=== PATIENT | female | born 1980 | race Native Hawaiian/Other Pacific Islander ===

== ENCOUNTER 2016-05-31 21:53 | Emergency (ER) | payer OTHER ==
[~2016-05-31] VITALS: Ht 175.3 cm; Wt 63.5 kg
[2016-05-31] MEDS ORDERED: ESTRACE2 MG PO (22:07)
[2016-05-31 22:39] LABS: PLATELET COUNT 192 K/uL (152-353)
[2016-05-31 22:49] LABS: POTASSIUM 3.4 mmol/L (3.6-5.2)
[2016-06-01 02:41] VITALS: BP 95/51; TEMP 99
== END 2016-06-01 02:42 | disposition home or self-care (01) ==
LOC: ED 21:53
DX: R31.9 Hematuria, unspecified (principal); N39.0 Urinary tract infection, site not specified; N20.0 Calculus of kidney; E87.1 Hypo-osmolality and hyponatremia
CPT/HCPCS: 36415; 80053; 81000; 85027; 96361; 96365; 96375; 99284; J0744; J1885; J2405

== ENCOUNTER 2017-08-06 09:41 | Emergency (ER) | payer OTHER ==
[~2017-08-06] VITALS: Ht 175.3 cm; Wt 68.0 kg
[~2017-08-06 09:41] MED LIST: ESTRACE2 MG PO
[2017-08-06 10:17] LABS: PLATELET COUNT 240 K/uL (152-353)
[2017-08-06 11:30] VITALS: BP 118/78; TEMP 98.7
== END 2017-08-06 11:30 | disposition home or self-care (01) ==
LOC: ED 09:41
PROVIDERS: Family Medicine
DX: R07.89 Other chest pain (principal)
CPT/HCPCS: 36415; 80053; 85027; 85379; 99283

== ENCOUNTER 2018-08-24 18:51 | Emergency (ER) | payer OTHER ==
[~2018-08-24] VITALS: Ht 175.3 cm; Wt 85.3 kg
[2018-08-24 20:50] VITALS: BP 100/61; TEMP 98.3
== END 2018-08-24 20:50 | disposition home or self-care (01) ==
LOC: ED 18:51
PROC: 0HQDXZZ Repair Right Lower Arm Skin, External Approach (ICD-10-PCS; principal; 2018-08-24)
DX: S51.811A Laceration without foreign body of right forearm, initial encounter (principal); W26.8XXA Contact with other sharp object(s), not elsewhere classified, initial encounter
CPT/HCPCS: 99283; J2001

== ENCOUNTER 2019-08-12 09:04 | Emergency (ER) | payer OTHER ==
[~2019-08-12] VITALS: Ht 175.3 cm; Wt 83.9 kg
[2019-08-12 09:12] VITALS: BP 108/70; TEMP 97.9
== END 2019-08-12 10:42 | disposition home or self-care (01) ==
LOC: ED 09:04
PROC: 0HQNXZZ Repair Left Foot Skin, External Approach (ICD-10-PCS; principal; 2019-08-12)
DX: S91.312A Laceration without foreign body, left foot, initial encounter (principal); W22.8XXA Striking against or struck by other objects, initial encounter; Y92.89 Other specified places as the place of occurrence of the external cause
CPT/HCPCS: 99283

== ENCOUNTER 2020-12-04 14:05 | Emergency (ER) | payer OTHER ==
[~2020-12-04] VITALS: Ht 175.3 cm; Wt 83.9 kg
[2020-12-04 14:16] VITALS: BP 106/73; TEMP 99.4
== END 2020-12-04 16:12 | disposition home or self-care (01) ==
LOC: ED 14:05
DX: J32.8 Other chronic sinusitis (principal); J06.9 Acute upper respiratory infection, unspecified; R50.9 Fever, unspecified; Z20.822 Contact with and (suspected) exposure to COVID-19
CPT/HCPCS: 87635; 87651; 99283; U0003

== ENCOUNTER 2021-01-10 18:25 | Emergency (ER) | payer OTHER ==
[~2021-01-10] VITALS: Ht 175.3 cm; Wt 86.6 kg
[2021-01-10 18:35] VITALS: BP 151/92; TEMP 96.2
[2021-01-10 20:37] LABS: PLATELET COUNT 303 K/uL (152-353)
[2021-01-10 20:47] LABS: POTASSIUM 3.6 mmol/L (3.6-5.2)
== END 2021-01-10 21:58 | disposition home or self-care (01) ==
LOC: ED 18:25
PROVIDERS: Emergency Medicine Emergency Medical Services
DX: K52.89 Other specified noninfective gastroenteritis and colitis (principal)
CPT/HCPCS: 36415; 80053; 85027; 85610; 87040; 96360; 99284; Q9963

== ENCOUNTER 2021-07-21 15:54 | Emergency (ER) | payer OTHER ==
[~2021-07-21] VITALS: Ht 175.3 cm; Wt 92.1 kg
[2021-07-21 16:00] VITALS: TEMP 97.6
[2021-07-21 16:25] LABS: PLATELET COUNT 389 K/uL (152-353)
[2021-07-21 17:19] LABS: POTASSIUM 3.4 mmol/L (3.6-5.2); SODIUM 137 mmol/L (136-145)
[2021-07-21 17:30] LABS: PARTIAL THROMBOPLASTIN TIME 26.5 SECONDS (24.5-33.6)
[2021-07-21 18:00] VITALS: BP 117/78
== END 2021-07-21 18:15 | disposition home or self-care (01) ==
LOC: ED 15:54
PROVIDERS: Hospitalist
DX: R42 Dizziness and giddiness (principal); G44.209 Tension-type headache, unspecified, not intractable
CPT/HCPCS: 36415; 80053; 80320; 82550; 83880; 84484; 85027; 85610; 85730; 93005; 96360; 96374; 99284; J1200; J1885